=== PATIENT | male | born 1980 | race Caucasian/White ===

== ENCOUNTER 2016-08-17 14:57 | Emergency (ER) | payer SELFPAY ==
[2016-08-17 16:01] LABS: CHLORIDE,CL 103 mmol/L (98-110); SODIUM,NA 141 mmol/L (136-146)
[2016-08-17] MEDS ORDERED: Ketorolac 60 MG/2 ML SDV IM ONE (17:05)
--- NOTE | 2016-08-17 17:07 | EDM.PDOC ---
ED HPI RENAL/ - General Chief Complaint: Abdominal Pain Stated Complaint: SIDE PAINS Time Seen by Provider: 08/17/16 15:25 Source of Information: Reports: Patient History Limitations: Reports: No limitations - History of Present Illness INITIAL COMMENTS - FREE TEXT/NARRATIVE: HISTORY AND PHYSICAL: History of present illness: [Comes to the emergency room complaining of left flank pain/mid back pain. he's had a cough and cold for the past several weeks but has not taken any over-the- counter medications for it. Denies fever and chills, chest pain, shortness of breath and difficulty breathing. No abdominal pain nausea or vomiting. No difficulty urinating or having bowel movements. No blood in his stool or urine. Denies swelling to his feet and lower legs. No history of depression or anxiety. Denies recent injury or trauma. He admits that he drinks a quarter gallon of alcohol most nights of the week. He smokes 6-8 cigarettes per week and chews tobacco daily. Denies illicit drug use. ] Review of systems: As per history of present illness and below otherwise all systems reviewed and negative. Past medical history: As per history of present illness and as reviewed below otherwise noncontributory. Surgical history: As per history of present illness and as reviewed below otherwise noncontributory. Social history: No reported history of drug or alcohol abuse. Family history: As per history of present illness and as reviewed below otherwise noncontributory. Physical exam: HEENT: Atraumatic, normocephalic. negative for conjunctival pallor or scleral icterus. mucous membranes moist, throat clear. neck supple, nontender, no lymphadenopathy. Lungs: Clear to auscultation, breath sounds equal bilaterally, wheezing appreciated in the posterior lung salazar. Crackles or rales. Heart: S1S2, regular rate rhythm. No murmur gallop click or rub. Abdomen: Normoactive bowel sounds. Abdomen is obese, Soft, nondistended, nontender. No masses guarding or rebound. Negative for costovertebral tenderness. Pelvis: Stable nontender. Genitourinary: Deferred. Rectal: Deferred. Back: He is tender to left mid back below scapula. No CVA tenderness. Extremities: Atraumatic, negative for cords or calf pain. Swelling or cyanosis feet or lower legs. Neurovascular unremarkable. Neuro: Awake, alert, oriented. Motor and sensory unremarkable throughout. Exam nonfocal. Diagnostics: [CBC, CMP, urinalysis, CT abdomen and pelvis without contrast.] Therapeutics: [Toradol 60 mg IM] Impression: [UTI] Plan: [Urine is red and slightly cloudy. Positive nitrates, moderate amount of bilirubin. We'll treat as UTI with Cipro 500 mg twice a day for 10 days. Push fluids. He is in agreement with today's plan. Recommend he establish care and followup with a local primary care provider. All of his questions are answered and concerns are addressed.] Definitive disposition and diagnosis as appropriate pending reevaluation and review of above. - Related Data Allergies/ADRs: Allergies Allergy/AdvReac Type Severity Reaction Status Date / Time No Known Allergies Allergy Verified 08/17/16 15:03 Home Meds: Home Meds . [No Known Home Meds] 09/21/13 [History] Past Medical History HEENT History: Reports: None Cardiovascular History: Reports: High cholesterol, Hypertension Respiratory History: Reports: None Gastrointestinal History: Reports: None Genitourinary History: Reports: None Musculoskeletal History: Reports: Fracture Other Musculoskeletal History: rt wrist fx, left ankle fx Neurological History: Reports: None Psychiatric History: Reports: Anxiety Endocrine/Metabolic History: Reports: Obesity/BMI 30+ Hematologic History: Reports: None Immunologic History: Reports: None Oncologic (Cancer) History: Reports: None Dermatologic History: Reports: None - Infectious Disease History Infectious Disease History: Reports: Chicken pox - Past Surgical History Head Surgeries/Procedures: Reports: None Musculoskeletal Surgical History: Reports: Arthroscopic knee Other Musculoskeletal Surgeries/Procedures:: 2 rt knee surgery Social & Family History - Family History Family Medical History: Noncontributory - Tobacco Use Smoking Status *Q: Current Every Day Smoker Years of Tobacco use: 20 Packs/Tins Daily: 0.2 Used Tobacco, but Quit: No Second Hand Smoke Exposure: No - Caffeine Use Caffeine Use: Reports: Soda - Alcohol Use Days Per Week of Alcohol Use: 3 Number of Drinks Per Day: 2 Total Drinks Per Week: 6 - Recreational Drug Use Recreational Drug Use: Yes Drug Use in Last 12 Months: Yes Recreational Drug Type: Reports: Marijuana/Hashish Recreational Drug Use Frequency: Daily ED ROS GENERAL - Review of Systems Review Of Systems: ROS reveals no pertinent complaints other than HPI. ED EXAM, RENAL/ - Physical Exam Exam: See Below Course - Vital Signs Last Recorded V/S: Last Vital Signs Temp 97.0 F 08/17/16 15:03 Pulse 78 08/17/16 17:23 Resp 16 08/17/16 17:23 BP 167/108 H 08/17/16 17:23 Pulse Ox 99 08/17/16 17:23 - Orders/Labs/Meds Orders: Active Orders 24 hr Category Date Time Status Abdomen Pelvis wo Cont [CT] Stat Exams 08/17/16 16:21 Taken Chest 2V [CR] Stat Exams 08/17/16 15:24 Taken Labs: Laboratory Tests 08/17/16 08/17/16 08/17/16 Range/Units 15:31 15:31 15:45 WBC 4.25 (4.0-11.0) K/uL RBC 5.15 (4.50-5.90) M/uL Hgb 17.2 H (13.0-17.0) g/dL Hct 48.1 (38.0-50.0) % MCV 93.4 (80.0-98.0) fL MCH 33.4 H (27.0-32.0) pg MCHC 35.8 (31.0-37.0) g/dL RDW Std Deviation 42.2 (28.0-62.0) fl RDW Coeff of [place] 12 (11.0-15.0) % Plt Count 173 (150-400) K/uL MPV 9.80 (7.40-12.00) fL Neut % (Auto) 47.3 L (48.0-80.0) % Lymph % (Auto) 36.7 (16.0-40.0) % [place] % (Auto) 13.2 (0.0-15.0) % Eos % (Auto) 1.9 (0.0-7.0) % Baso % (Auto) 0.9 (0.0-1.5) % Neut # 2.0 (1.4-5.7) K/uL Lymph # 1.6 (0.6-2.4) K/uL [place] # 0.6 (0.0-0.8) K/uL Eos # 0.1 (0.0-0.7) K/uL Baso # 0.0 (0.0-0.1) K/uL Nucleated RBC % 0.0 /100WBC Nucleated RBCs # 0 K/uL Sodium 141 (136-146) mmol/L Potassium 3.9 (3.5-5.1) mmol/L Chloride 103 (98-110) mmol/L Carbon Dioxide 24 (21-31) mmol/L BUN 13 (6.0-23.0) mg/dL Creatinine 1.1 (0.6-1.5) mg/dL Est Cr Clr Drug Dosing 90.68 mL/min Estimated GFR (MDRD) > 60.0 ml/min Glucose 116 H (60-110) mg/dL Calcium 10.1 (8.8-10.8) mg/dL Total Bilirubin 2.3 H (0.1-1.5) mg/dL AST 45 H (5-40) IU/L ALT 64 H (8-54) IU/L Alkaline Phosphatase 71 (40-150) Total Protein 7.7 (6.0-8.0) g/dL Albumin 4.6 (3.5-5.0) g/dL Globulin 3.1 (2.0-3.5) g/dL Albumin/Globulin Ratio 1.5 (1.3-2.8) Urine Color RED Urine Appearance SLT CLOUDY Urine pH 5.5 (5.0-8.0) Ur Specific [place] >= 1.030 (1.001-1.035) Urine Protein 100 (NEGATIVE) mg/dL Urine Glucose (UA) NEGATIVE (NEGATIVE) mg/dL Urine Ketones 15 H (NEGATIVE) mg/dL Urine Occult Blood NEGATIVE (NEGATIVE) Urine Nitrite POSITIVE H (NEGATIVE) Urine Bilirubin MODERATE H (NEGATIVE) Urine Ictotest POSITIVE Urine Urobilinogen 2.0 H (<2.0) EU/dL Ur Leukocyte Esterase NEGATIVE (NEGATIVE) Urine RBC 0-1 (0-2/HPF) Urine WBC 2-4 (0-5/HPF) Ur Epithelial Cells OCCASIONAL (NONE-FEW) Amorphous Sediment LIGHT (NEGATIVE) Urine Bacteria NOT SEEN (NEGATIVE) Urine Mucus HEAVY (NONE-MOD) Urine Trichomonas Not Reportable Meds: Medications Discontinued Medications Generic Name Dose Route Start Last Admin Trade Name Freq PRN Reason Stop Dose Admin Ketorolac Tromethamine 60 mg 08/17/16 17:05 08/17/16 17:10 Toradol IM 08/17/16 17:06 60 mg ONETIME ONE Administration Departure - Departure Time of Disposition: 17:05 Disposition: Home, Self-Care 01 Condition: good Clinical Impression: UTI (urinary tract infection) Qualifiers: Urinary tract infection type: site unspecified Hematuria presence: with hematuria Qualified Code(s): N39.0 - Urinary tract infection, site not specified Instructions: Urinary Tract Infection, Adult, [id number] Referrals: PCP,None [Primary Care Provider] - Forms: ED Department Discharge Additional Instructions: The following information is given to patients seen in the emergency department who are being discharged to home. This information is to outline your options for follow-up care. We provide all patients seen in our emergency department with a follow-up referral. The need for follow-up, as well as the timing and circumstances, are variable depending upon the specifics of your emergency department visit. If you don't have a primary care physician on staff, we will provide you with a referral. We always advise you to contact your personal physician following an emergency department visit to inform them of the circumstance of the visit and for follow-up with them and/or the need for any referrals to a consulting specialist. The emergency department will also refer you to a specialist when appropriate. This referral assures that you have the opportunity for follow-up care with a specialist. All of these measure are taken in an effort to provide you with optimal care, which includes your follow-up. Under all circumstances we always encourage you to contact your private physician who remains a resource for coordinating your care. When calling for follow-up care, please make the office aware that this follow-up is from your recent emergency room visit. If for any reason you are refused follow-up, please contact the [facility] emergency department at and asked to speak to the emergency department charge nurse. [facility] [address] [place] [id number] Establish care with a local primary care provider at the clinic listed above. Take antibiotics exactly as prescribed. You need to push fluids. Return to ER as needed as discussed - My Orders Last 24 Hours: My Active Orders 08/17/16 15:24 Chest 2V [CR] Stat 08/17/16 16:21 Abdomen Pelvis wo Cont [CT] Stat - Assessment/Plan Last 24 Hours: My Active Orders 08/17/16 15:24 Chest 2V [CR] Stat 08/17/16 16:21 Abdomen Pelvis wo Cont [CT] Stat
[2016-08-17 17:25] VITALS: BP 167/108
--- NOTE | 2016-08-18 18:32 | CR ---
EXAM DATE: 08/17/16 PATIENT'S AGE: 36 Patient: AMISH MAIN Facility: [place], [place] Site . Site : 1980 Study: XRay Chest [id number]/5/2017 3:42:23 PM Ordering Physician: Doctor Lewis Final Report: INDICATION: pain, left side HISTORY: Left-sided chest pain. COMPARISON: None. TECHNIQUE: Chest, 2 views. FINDINGS: Heart size and pulmonary vasculature are normal. Lungs and pleural spaces are clear. No pneumothorax. There is widening of 2 adjacent ribs in the left posterior hemithorax, which may represent chronic fracture deformities. There is no acute or displaced rib fracture identified by plain film. IMPRESSION: Lungs are clear. Dictated by Milton Louie MD @ 08/17/2016 3:59:42 PM Dictated by: Milton Louie MD @ 08/17/2016 15:59:56 (Electronic Signature) Report Signed by Proxy and Original Signed Document filed in the Medical Record. MTDD
--- NOTE | 2016-08-18 18:33 | CT ---
EXAM DATE: 08/17/16 PATIENT'S AGE: 36 Patient: AMISH MAIN Facility: [place], [place] Site . Site : 1980 Study: CT Abdomen/Pelvis [id number]/[id number] 4:44:46 PM Ordering Physician: Doctor Lewis Final Report: INDICATION: Left-sided abdominal pain. Technique: Volumetric unenhanced CT the abdomen and pelvis with multiplanar reconstruction. Findings: The lung bases are clear. The liver and spleen are normal in size and without focal abnormality. No dilatation of the biliary system. The gallbladder is present. The pancreas and adrenal glands are normal. The kidneys are normal in size, shape, and position. No hydronephrosis. No urinary tract stones. No renal masses or focal parenchymal abnormalities. The ureters normal in course and caliber. Abdominal aorta normal in caliber. No paraaortic or retrocrural lymphadenopathy. Normal bowel gas pattern. No inflammatory changes involving the bowel. The urinary bladder has a smooth contour. The fat planes surrounding the bladder, rectum, and prostate are maintained. No free fluid in the abdomen and pelvis. No acute bony abnormalities. Impression: No acute abnormality of the abdomen and pelvis. Dictated by Elida Choudhary MD @ Aug 17 2016 4:47PM (Electronic Signature) Report Signed by Proxy and Original Signed Document filed in the Medical Record. [facility]
== END 2016-08-17 17:14 | disposition home or self-care (01) ==
LOC: MW.ED 14:57
DX: N39.0 Urinary tract infection, site not specified (principal); E78.00 Pure hypercholesterolemia, unspecified; I10 Essential (primary) hypertension; E66.9 Obesity, unspecified; F41.9 Anxiety disorder, unspecified; F17.210 Nicotine dependence, cigarettes, uncomplicated
CPT/HCPCS: 36415; 71020; 74176; 80053; 81001; 85025; 96372; 99285; J1885; 99283